=== PATIENT | female | born 2000 | race Caucasian/White ===

== ENCOUNTER 2019-04-27 03:20 | Inpatient (IN) ==
[2019-04-27] MEDS ORDERED: MEPERIDINE 50 MG/1 ML VIAL IV PRN (03:36)
[2019-04-27] MEDS ORDERED: ONDANSETRON 4 MG/2 ML VIAL IV PRN ×2 (03:36→17:22)
[2019-04-27] MEDS ORDERED: BUTORPHANOL 2 MG/ML VIAL IV PRN (03:36)
[2019-04-27] MEDS ORDERED: FAMOTIDINE 20 MG/2 ML VIAL IV PRN (03:36)
[2019-04-27] MEDS ORDERED: CITRIC ACID/SODIUM CITRATE 30 ML UDCUP PO PRN (03:38)
[2019-04-27] MEDS ORDERED: ePHEDrine 50 MG/ML AMP IV PRN ×2 (03:39→07:56)
[2019-04-27] MEDS: LACTATED RINGERS 1,000 ML IV SCH ×2 (03:45→08:38)
[2019-04-27 03:58] LABS: Basophils % 0.3 % (0.0-0.8); Eosinophils % 0.4 % (0.00-10.9); Hematocrit 32.8 VOL% (35.7-47.0); Hemoglobin 10.4 GM/DL (12.0-16.0); Immature Granulocytes % 1.1 %; Immature Granulocytes Absolute 0.12 #; Lymphocytes # 2.5 10*3/uL (1.4-4.0); Lymphocytes % 22.2 % (21.3-54.2); Mean Corpuscular HGB Conc 31.7 GM/DL (32-36); Mean Corpuscular Volume 87.7 FL (87-102); Monocytes % 10.1 % (1.7-12.7); Neutrophils % 65.9 % (38.7-73.9); Platelet Count 216 T/CUMM (130-400); Red Blood Count 3.74 MC/CUMM (3.8-5.5); Red Cell Distribution Width 13.6 % (9.3-17.3); White Blood Count 11.3 T/CUMM (4-12)
[2019-04-27] MEDS ORDERED: fentaNYL 2 MCG/ROPIV 0.2% EPID 100 ML EPIDURAL SCH ×2 (04:00→08:00)
[2019-04-27 04:27] LABS: Albumin 2.7 G/DL (3.4-5.0); Bilirubin,Total 0.7 MG/DL (0.2-1.0); Calcium 8.6 MG/DL (8.5-10.1); Osmolality,Calculated 275.4 MOS/KG (273-304); Total Protein 6.4 G/DL (6.4-8.3)
[2019-04-27] MEDS ORDERED: OXYTOCIN/LR 20 UNIT/1,000 ML BAG IV SCH (07:00)
[2019-04-27] MEDS ORDERED: diphenhydrAMINE 50 MG/1 ML VIAL IV PRN ×2 (07:56)
[2019-04-27] MEDS ORDERED: FAMOTIDINE 20 MG/2 ML VIAL IV ONE (07:56)
[2019-04-27] MEDS ORDERED: hydrOXYzine HCL 25 MG/1 ML VIAL IM PRN (07:56)
[2019-04-27] MEDS ORDERED: ONDANSETRON 4 MG/2 ML VIAL IV ONE (07:56)
[2019-04-27] MEDS ORDERED: CITRIC ACID/SODIUM CITRATE 30 ML UDCUP PO ONE (07:56)
[2019-04-27] MEDS ORDERED: PROMETHAZINE 25 MG/1 ML VIAL IM ONE (07:56)
[2019-04-27] MEDS ORDERED: NALOXONE 0.4 MG/ML VIAL IV PRN (07:56)
[2019-04-27 10:33] LABS: Apearance,Urine CLEAR (Clear); Bacteria,Urine Occasional /HPF (Few); Bilirubin,Urine Negative (Negative); Blood, Urine Negative (Negative); Glucose,Urine (UA) Negative (Negative); Ketones,Urine Negative (Negative); Mucus,Urine Occasional /LPF (Occasional); Nitrite,Urine Negative (Negative); Protein,Urine Negative; Urine Color Colorless (Yellow); Urine Specific Gravity 1.004 (1.001-1.035); Urine Urobilinogen < 2.0 EU/DL (0.2-1.0); WBC,Urine <1 /HPF (0-6)
[2019-04-27] MEDS ORDERED: miSOPROStol 200 MCG TABLET ONE (12:53)
[2019-04-27] MEDS ORDERED: LIDOCAINE 1% 50 ML VIAL ONE (13:31)
[2019-04-27] MEDS ORDERED: METHYLERGONOVINE 0.2 MG/1 ML AMP ONE (16:42)
[2019-04-27] MEDS ORDERED: CARBOPROST TROMETHAMINE 250 MCG/ML AMP IM ONE (16:42)
[2019-04-27] MEDS ORDERED: OXYTOCIN/LR 20 UNIT/1,000 ML BAG IV ONE (17:22)
[2019-04-27] MEDS ORDERED: LANOLIN 50% CREAM 0.3 OZ TUBE TOP PRN (17:22)
[2019-04-27] MEDS ORDERED: MEASLES/MUMPS/RUBELLA VACCINE 0.5 ML VIAL SUBCUT ONE (17:22)
[2019-04-27] MEDS ORDERED: BISACODYL 10 MG SUPP RECTAL PRN (17:22)
[2019-04-27] MEDS ORDERED: oxyCODONE/ACETAMINOPHEN 5-325 MG TABLET PO PRN ×2 (17:22)
[2019-04-27] MEDS ORDERED: WITCH HAZEL PADS 100/JAR TOP PRN (17:22)
[2019-04-27] MEDS ORDERED: BENZOCAINE 20%/MENTHOL 0.5% SPRAY 56 GM CAN TOP PRN (17:22)
[2019-04-27] MEDS ORDERED: DIPH/TET/ACEL PERT BOOSTER VACCINE 0.5 ML VIAL IM ONE (17:22)
[2019-04-27] MEDS ORDERED: RHO(D) IMMUNE GLOBULIN 300 MCG SYRINGE IM ONE (17:22)
[2019-04-27] MEDS ORDERED: ACETAMINOPHEN 325 MG TABLET PO PRN (17:22)
[2019-04-27] MEDS ORDERED: HYDROCORTISONE 2.5% RECTAL CREAM 30 GM TUBE TOP PRN (17:22)
[2019-04-27] MEDS: IBUPROFEN 800 MG TABLET PO PRN ×2 (18:18→23:34)
[2019-04-27] MEDS: DOCUSATE SODIUM 100 MG CAPSULE PO SCH (20:59)
[2019-04-28] MEDS: LACTATED RINGERS 1,000 ML IV SCH (03:00)
[2019-04-28] MEDS: IBUPROFEN 800 MG TABLET PO PRN ×3 (05:17→19:48)
[2019-04-28 05:34] LABS: Basophils % 0.2 % (0.0-0.8); Eosinophils % 0.2 % (0.00-10.9); Hematocrit 35.7 VOL% (35.7-47.0); Hemoglobin 11.1 GM/DL (12.0-16.0); Immature Granulocytes % 0.9 %; Immature Granulocytes Absolute 0.12 #; Lymphocytes # 1.3 10*3/uL (1.4-4.0); Lymphocytes % 9.9 % (21.3-54.2); Mean Corpuscular HGB Conc 31.1 GM/DL (32-36); Mean Corpuscular Volume 90.2 FL (87-102); Mean Platelet Volume 12.4 FL (9.6-12.0); Monocytes % 6.7 % (1.7-12.7); Neutrophils % 82.1 % (38.7-73.9); Platelet Count 167 T/CUMM (130-400); Red Blood Count 3.96 MC/CUMM (3.8-5.5); Red Cell Distribution Width 13.7 % (9.3-17.3); White Blood Count 13.3 T/CUMM (4-12)
[2019-04-28] MEDS: DOCUSATE SODIUM 100 MG CAPSULE PO SCH ×3 (09:19→23:15)
[2019-04-28] MEDS ORDERED: ACETAMINOPHEN/CODEINE 300-30 MG TABLET PO PRN ×2 (22:41)
[2019-04-29 07:39] VITALS: BP 114/69
[2019-04-29] MEDS: IBUPROFEN 800 MG TABLET PO PRN (08:19)
[2019-04-29] MEDS: DOCUSATE SODIUM 100 MG CAPSULE PO SCH (08:19)
== END 2019-04-29 13:10 | disposition home or self-care (01) | DRG 807 ==
LOC: N.LDOUT 03:20 → N.LD 03:24 → N.OB 20:25
PROVIDERS: ADMIT Obstetrics & Gynecology; ATTEND Obstetrics & Gynecology